=== PATIENT | female | born 1940 | race Caucasian/White ===

== ENCOUNTER 2016-09-21 15:43 | Emergency (ER) | payer OTHER, MEDICARE ==
[~2016-09-21] VITALS: Ht 170.2 cm; Wt 74.8 kg
--- NOTE | ~2016-09-21 | EKG ---
[address] [address] ELECTROCARDIOGRAM REPORT Name: PRETTY CALIXTO Room #: DEP Yudy#: [id number] Admission: 09/21/16 Attend Phys: Discharge: 09/21/16 Date of : 44 Report #: [id number] THIS REPORT FOR: //name// [facility] ED Test Date: 2016-09-21 Test Time: 20:13:40 Pat Name: PRETTY CALIXTO Department: Room: Gender: F [employer]: TAN : 1940 Requested By: Shalini Franco Order Number: [id number] MD: Carlo Sykes Measurements Intervals [place] Rate: 69 P: 71 MO: 191 QRS: 50 QRSD: 93 T: 60 QT: 406 QTc: 435 Interpretive Statements Sinus rhythm Normal tracing No previous ECG available for comparison Electronically Signed On 09-22-2016 7:42:53 [employer]TER by Carlo Sykes [email or web address] <ELECTRONICALLY SIGNED> By: Carlo Sykes MD, [facility] 09/22/16 0742 12 12 Carlo Sykes MD, FACC /EPI
[~2016-09-21 15:43] MED LIST: CO Q-1010 MG PO; ESTRACE1 TUBE VAG; IBUPROFEN 200200 M1 PO; LEVOTHYROXIN0.137 M1 PO; OMEGA-31000 M1 PO; PRILOSEC20 MG PO; PROBIOTIC1 EAC1 PO; VITAMIN D-32000 UNI1 PO; ZANTAC 150MG T150 MG PO
[2016-09-21] MEDS ORDERED: LEVOTHYROXIN0.025 MG PO (16:19)
[2016-09-21] MEDS ORDERED: CO Q-10100 M1 PO (16:20)
[2016-09-21] MEDS ORDERED: CARAFATE 1 GM TA1 G1 PO (16:22)
[2016-09-21] MEDS ORDERED: OMEGA-31000 M1 PO (16:23)
[2016-09-21 16:28] LABS: BASOPHILS 0.6 % (0.0-2.0); EOSINOPHILS 1.7 % (0.0-3.0); LYMPHOCYTES 39.6 % (24.0-44.0); MCH 27.1 pg (26.0-34.0); MCHC 32.6 % (28.0-37.0); MCV 83.1 fL (80.0-100.0); MONOCYTES 6.4 % (1.0-8.0); PLATELET COUNT 173 thou/uL (150-400); POLYS 51.7 % (36.0-66.0); RBC 4.81 mil/uL (4.20-5.00); RDW 14.8 % (10.5-14.5); WBC 5.8 thou/uL (4.0-11.0)
[2016-09-21 16:30] LABS: MANUAL DIFF NO
[2016-09-21 16:36] LABS: CALCIUM 8.8 mg/dL (8.5-10.1); CREATININE 0.7 mg/dL (0.6-1.3); MAGNESIUM 1.7 mg/dL (1.8-2.4); POTASSIUM 3.4 mmol/L (3.5-5.1)
[2016-09-21 20:03] VITALS: BP 148/70
== END 2016-09-21 20:25 | disposition home or self-care (01) ==
LOC: ER 15:43
PROVIDERS: Emergency Medicine
DX: H53.8 Other visual disturbances (principal); F10.99 Alcohol use, unspecified with unspecified alcohol-induced disorder; Z88.1 Allergy status to other antibiotic agents; Z88.8 Allergy status to other drugs, medicaments and biological substances; Z90.710 Acquired absence of both cervix and uterus